=== PATIENT | male | born 1980 | race Caucasian/White ===

== ENCOUNTER 2017-02-27 08:24 | Emergency (ER) | payer BC, MEDICAID ==
[~2017-02-27] VITALS: Ht 182.9 cm; Wt 108.8 kg
[2017-02-27] MEDS ORDERED: FISH OIL PO (08:37)
[2017-02-27] MEDS ORDERED: METOCLOPRAMIDE HCL 10 MG/2 ML VIAL ONE (08:53)
[2017-02-27] MEDS ORDERED: KETOROLAC TROMETHAMINE 15 MG INJ ONE (08:53)
[2017-02-27] MEDS ORDERED: IV NORMAL SALINE 1000 ML BAG IV ONE (09:00)
[2017-02-27] MEDS ORDERED: METOCLOPRAMIDE HCL 10 MG/2 ML VIAL IV ONE (09:00)
[2017-02-27] MEDS ORDERED: KETOROLAC TROMETHAMINE 15 MG INJ IV ONE (09:00)
[2017-02-27 09:10] LABS: BASOPHILS # (AUTO) 0.1 K/uL (0.0-0.2); BASOPHILS % (AUTO) 0.6 % (0.0-2.0); EOSINOPHILS # (AUTO) 0.1 K/uL (0.0-0.7); EOSINOPHILS % (AUTO) 1.1 % (0.0-7.0); HEMATOCRIT 48.8 % (40.0-50.0); HEMOGLOBIN 16.8 g/dL (14.0-18.0); LYMPHOCYTES % (AUTO) 30.3 % (20.5-51.5); MEAN CORPUSCULAR HEMOGLOBIN 28.9 uug (27.0-31.0); MEAN CORPUSCULAR HGB CONC 34 g/dL (32.0-37.0); MONOCYTES # (AUTO) 0.6 K/uL (0.1-1.30); MONOCYTES % (AUTO) 6.1 % (0.0-11.0); NEUTROPHILS % (AUTO) 61.9 % (38.5-71.5); PLATELET COUNT (AUTO) 214 K/uL (150-450); RED BLOOD CELL COUNT(AUTO) 5.82 MIL/uL (4.70-6.10); WHITE BLOOD COUNT (AUTO) 9.8 K/uL (4.0-11.2)
[2017-02-27 09:17] LABS: CALCIUM 9.1 mg/dL (8.5-10.1); CREATININE 0.9 mg/dL (0.6-1.3); POTASSIUM 4.1 mmol/L (3.5-5.1)
[2017-02-27 09:23] LABS: ALBUMIN 4.1 g/dL (3.4-5.0); BILIRUBIN,DIRECT 0.1 mg/dL (0.0-0.2); BILIRUBIN,TOTAL 0.6 mg/dL (0.2-1.0); TOTAL PROTEIN, SERUM 8.1 g/dL (6.4-8.2)
[2017-02-27] MEDS ORDERED: MAG HYDROX/AL HYDROX/SIMETH 30 ML LIQUID UDC PO ONE (10:15)
[2017-02-27] MEDS ORDERED: FAMOTIDINE 20 MG TABLET PO ONE (10:15)
[2017-02-27 10:18] LABS: *BILIRUBIN,URIN NEGATIVE (NEGATIVE); *BLOOD, URINE 1+ (NEGATIVE); *CLARITY,URINE CLEAR (CLEAR); *COLOR,URINE LIGHT YELLOW (YELLOW); *KETONES,URINE NEGATIVE (NEGATIVE); *PROTEIN,URINE NEGATIVE (NEGATIVE); *UROBILINOGEN,URINE 0.2 E.U./dl (NORMAL); LEUKOCYTE ESTERASE ,URINE NEGATIVE (NEGATIVE); NITRITE, URINE NEGATIVE (NEGATIVE); UGLUCOSE NEGATIVE (NEGATIVE)
[2017-02-27 10:33] LABS: BACTERIA,URINE NONE SEEN /HPF (NONE SEEN); MUCUS,URINE FEW /LPF (0-FEW); SQUAMOUS EPITHELIAL CELL,UR FEW /HPF (NONE SEEN); WBC,URINE 0-3 /HPF (0-3)
[2017-02-27] MEDS ORDERED: IV NORMAL SALINE 250 ML IV ONE (10:33)
[2017-02-27] MEDS ORDERED: IOHEXOL 300MG/ML 100 ML INFUS..BTL ONE (10:33)
[2017-02-27] MEDS ORDERED: FAMOTIDINE 20 MG TABLET ONE (10:41)
[2017-02-27] MEDS ORDERED: MAG HYDROX/AL HYDROX/SIMETH 30 ML LIQUID UDC ONE (10:42)
--- NOTE | 2017-02-27 11:20 | NUR ---
Patient is resting comfortably in bed with eyes closed. PATIENT IS PAIN FREE AT THIS TIME.
--- NOTE | 2017-02-27 11:47 | NUR ---
Patient is tolerating po intake, pending disposition@this time
--- NOTE | 2017-02-27 12:00 | NUR ---
IV removed. Catheter intact and site benign. Pressure and 4x4 gauze applied to site. No bleeding noted.
--- NOTE | 2017-02-27 12:05 | NUR ---
Patient discharged to home in stable conditon. Written and verbal after care instructions given to patient. Patient verbalizes understanding of instructions. PATIENT IS STILL PAIN FREE AT THIS TIME.
== END 2017-02-27 12:07 | disposition home or self-care (01) ==
LOC: ER 08:24
DX: R07.89 Other chest pain (principal); R10.13 Epigastric pain; E78.00 Pure hypercholesterolemia, unspecified
CPT/HCPCS: 36415; 71010; 71275; 76705; 80048; 80076; 81001; 83690; 84484; 85025; 85379; 93005; 96374; 96375; 99291; A4663; J1885; J2765; J7030; J7050; Q9967; 70030-TC

== ENCOUNTER 2017-06-07 11:20 | Emergency (ER) | payer BC ==
[~2017-06-07] VITALS: Ht 185.4 cm; Wt 108.9 kg
[~2017-06-07 11:20] MED LIST: FISH OIL PO
[2017-06-07] MEDS ORDERED: NEOMY/BACITRA/POLYMYXIN B OINT UD PACKET TP ONE ×2 (12:00→12:16)
--- NOTE | 2017-06-07 12:06 | NUR ---
Patient discharged to home in stable conditon. Written and verbal after care instructions given to patient. Patient verbalizes understanding of instructions.
== END 2017-06-07 12:07 | disposition home or self-care (01) ==
LOC: ER 11:20
DX: L03.011 Cellulitis of right finger (principal); E78.00 Pure hypercholesterolemia, unspecified
CPT/HCPCS: 99283; A4217; A4663

== ENCOUNTER 2017-07-30 03:12 | Inpatient (IN) | payer BC ==
[~2017-07-30] VITALS: Ht 185.4 cm; Wt 108.9 kg
[2017-07-30] MEDS ORDERED: GEMFIBROZIL 600 MG TABLET PO (03:31)
[2017-07-30 03:56] LABS: BASOPHILS # (AUTO) 0.1 K/uL (0.0-8.0); BASOPHILS % (AUTO) 0.8 % (0.0-2.0); EOSINOPHILS # (AUTO) 0.3 K/uL (0.0-0.7); EOSINOPHILS % (AUTO) 3.8 % (0.0-7.0); HEMATOCRIT 47.4 % (40-50); HEMOGLOBIN 16.1 G/DL (14.0-18.0); LYMPHOCYTES # (AUTO) 4.6 K/UL (0.8-4.8); LYMPHOCYTES % (AUTO) 51.6 % (20.5-51.5); MEAN CORPUSCULAR HEMOGLOBIN 28.5 UUG (27.0-31.0); MEAN CORPUSCULAR HGB CONC 34 g/dL (32.0-37.0); MEAN CORPUSCULAR VOLUME 83.9 FL (82.0-92.0); MONOCYTES # (AUTO) 0.5 K/UL (0.1-1.30); MONOCYTES % (AUTO) 6.1 % (0.0-11.0); NEUTROPHILS # (AUTO) 3.4 K/UL (1.8-8.9); NEUTROPHILS % (AUTO) 37.7 % (38.5-71.5); PLATELET COUNT (AUTO) 242 K/UL (150-450); RED BLOOD CELL COUNT(AUTO) 5.65 MIL/UL (4.7-6.1); WHITE BLOOD COUNT (AUTO) 8.9 K/UL (4.0-11.2)
[2017-07-30 04:04] LABS: POTASSIUM 4.1 mmol/L (3.5-5.1)
[2017-07-30 04:06] LABS: *AMPHETAMINE, URINE NEGATIVE (NEGATIVE); *BARBITURATE, URINE NEGATIVE (NEGATIVE); *CANNABINOID, URINE NEGATIVE (NEGATIVE); *COCCAINE, URINE NEGATIVE (NEGATIVE); *OPIATE, URINE NEGATIVE (NEGATIVE); *PHENCYCLIDINE SCREEN,URINE NEGATIVE (NEGATIVE)
[2017-07-30 04:16] LABS: BILIRUBIN,DIRECT 0.1 mg/dL (0.0-0.2); BILIRUBIN,TOTAL 0.5 mg/dL (0.2-1.0)
[2017-07-30 08:17] VITALS: BP 126/76
[2017-07-30 11:24] VITALS: BP 132/70
[2017-07-30 15:32] VITALS: BP_SYST 112; BP_SYST 131; BP_DIAS 64; BP_DIAS 79
[2017-07-30 16:43] LABS: *BILIRUBIN,URIN NEGATIVE (NEGATIVE); *BLOOD, URINE Trace-intact (NEGATIVE); *COLOR,URINE YELLOW (YELLOW); *KETONES,URINE NEGATIVE (NEGATIVE); *PROTEIN,URINE NEGATIVE (NEGATIVE); *UROBILINOGEN,URINE 0.2 E.U./dl (NORMAL); LEUKOCYTE ESTERASE ,URINE NEGATIVE (NEGATIVE); NITRITE, URINE NEGATIVE (NEGATIVE); UGLUCOSE NEGATIVE (NEGATIVE)
[2017-07-30 17:00] LABS: *CLARITY,URINE SLIGHTLY HAZY (CLEAR)
[2017-07-30 17:02] LABS: SQUAMOUS EPITHELIAL CELL,UR FEW /HPF (NONE SEEN); URINE AMORPHOUS PHOSPHATES MODERATE /HPF; WBC,URINE 0-3 /HPF (0-3)
[2017-07-30 17:03] LABS: MUCUS,URINE FEW /LPF (0-FEW)
[2017-07-30 20:14] VITALS: BP 133/96
[2017-07-31 06:39] LABS: BASOPHILS # (AUTO) 0.1 K/uL (0.0-8.0); BASOPHILS % (AUTO) 0.6 % (0.0-2.0); EOSINOPHILS # (AUTO) 0.5 K/uL (0.0-0.7); HEMATOCRIT 49.7 % (40-50); HEMOGLOBIN 17.3 G/DL (14.0-18.0); LYMPHOCYTES # (AUTO) 4.9 K/UL (0.8-4.8); MEAN CORPUSCULAR HEMOGLOBIN 29.3 UUG (27.0-31.0); MEAN CORPUSCULAR HGB CONC 35 g/dL (32.0-37.0); MEAN CORPUSCULAR VOLUME 84.1 FL (82.0-92.0); MONOCYTES # (AUTO) 0.7 K/UL (0.1-1.30); MONOCYTES % (AUTO) 7.1 % (0.0-11.0); NEUTROPHILS % (AUTO) 32.3 % (38.5-71.5); PLATELET COUNT (AUTO) 259 K/UL (150-450); RED BLOOD CELL COUNT(AUTO) 5.91 MIL/UL (4.7-6.1); WHITE BLOOD COUNT (AUTO) 9.2 K/UL (4.0-11.2)
[2017-07-31 06:51] VITALS: BP 131/92
[2017-07-31 07:31] LABS: CREATININE 1.1 mg/dL (0.6-1.3); MAGNESIUM 1.8 mg/dL (1.8-2.4); PHOSPHOROUS 4.5 mg/dL (2.5-4.9); POTASSIUM 4.1 mmol/L (3.5-5.1)
[2017-07-31 11:40] VITALS: BP 131/87
[2017-07-31] MEDS ORDERED: OMEG1CAP PO (15:48)
== END 2017-07-31 16:30 | disposition home or self-care (01) | DRG 756 ==
LOC: ER 03:12 → MED 06:30 → TELE 06:30 → UNDOADMIN 06:30 → MED 10:30
PROVIDERS: ADMIT Internal Medicine; ATTEND Internal Medicine
DX: F41.9 Anxiety disorder, unspecified (principal); K76.0 Fatty (change of) liver, not elsewhere classified; E78.5 Hyperlipidemia, unspecified; E66.9 Obesity, unspecified; R74.0 Nonspecific elevation of levels of transaminase and lactic acid dehydrogenase [LDH]; F43.9 Reaction to severe stress, unspecified; E11.9 Type 2 diabetes mellitus without complications; Z68.31 Body mass index [BMI] 31.0-31.9, adult; Z82.49 Family history of ischemic heart disease and other diseases of the circulatory system; E78.1 Pure hyperglyceridemia
CPT/HCPCS: 36415; 70030-TC; 71010; 78452; 80307; 83735; 84100; 84443; 85025; 85730; 87086; 93005; 93307; A4663; A9502; J1815; J2785; J7030

== ENCOUNTER 2018-02-27 01:23 | Emergency (ER) | payer BC, MEDICAID ==
[~2018-02-27] VITALS: Ht 182.9 cm; Wt 99.8 kg
[~2018-02-27 01:23] MED LIST changes: -FISH OIL PO; +GEMFIBROZIL 600 MG TABLET PO; +OMEG1CAP PO
--- NOTE | 2018-02-27 01:41 | NUR ---
DR MADDIE EUGENE MD AT BEDSIDE FOR MSE.
--- NOTE | 2018-02-27 02:00 | NUR ---
XRAY AT PT BEDSIDE.
[2018-02-27] MEDS ORDERED: LORAZEPAM 0.5 MG TABLET PO ONE (02:15)
[2018-02-27 02:20] LABS: CREATININE 1.1 mg/dL (0.6-1.3); POTASSIUM 3.8 mmol/L (3.5-5.1)
[2018-02-27] MEDS ORDERED: LORAZEPAM 0.5 MG TABLET ONE (02:20)
[2018-02-27 02:22] LABS: BASOPHILS % (AUTO) 0.5 % (0.0-2.0); EOSINOPHILS # (AUTO) 0.2 K/uL (0.0-0.7); EOSINOPHILS % (AUTO) 2.4 % (0.0-7.0); HEMOGLOBIN 15.7 g/dL (12.5-16.3); LYMPHOCYTES # (AUTO) 4.5 K/uL (20.0-40.0); LYMPHOCYTES % (AUTO) 48.1 % (20.5-51.5); MEAN CORPUSCULAR HEMOGLOBIN 28.9 uug (23.8-33.4); MEAN CORPUSCULAR HGB CONC 35 g/dL (32.5-36.3); MEAN CORPUSCULAR VOLUME 83.1 fL (73.0-96.2); MONOCYTES # (AUTO) 0.6 K/uL (2.0-10.0); MONOCYTES % (AUTO) 5.9 % (0.0-11.0); NEUTROPHILS % (AUTO) 43.1 % (38.5-71.5); PLATELET COUNT (AUTO) 230 K/uL (152-348); RED BLOOD CELL COUNT(AUTO) 5.41 MIL/uL (4.06-5.63); WHITE BLOOD COUNT (AUTO) 9.3 K/uL (3.6-10.2)
[2018-02-27 02:26] LABS: BILIRUBIN,DIRECT 0.1 mg/dL (0.0-0.2); BILIRUBIN,TOTAL 0.3 mg/dL (0.2-1.0); TOTAL PROTEIN, SERUM 7.6 g/dL (6.4-8.2)
--- NOTE | 2018-02-27 03:17 | NUR ---
PT RESTING IN BED W/ EYES CLOSED. NO ACUTE DISTRESS NOTED.
--- NOTE | 2018-02-27 04:02 | NUR ---
PT AMBULATED TO AND FROM BATHROOM W/ STEADY GAIT. DENIES SOB OR CP AT THIS TIME.
--- NOTE | 2018-02-27 05:47 | NUR ---
IV REMOVED W/ CATHETR INTACT. PRESSURE APPLIED. NO BLEEDING NOTED AT SITE.
--- NOTE | 2018-02-27 05:50 | NUR ---
Patient discharged to home in stable conditon. Written and verbal after care instructions given. Patient verbalizes understanding of instructions. Pt ambulated from the ER w/ steady gait. Denies CP or SOB. No distress noted.
[2018-02-27 05:52] VITALS: BP 136/86
== END 2018-02-27 05:53 | disposition home or self-care (01) ==
LOC: ER 01:30
DX: R07.89 Other chest pain (principal); E78.00 Pure hypercholesterolemia, unspecified; Z79.899 Other long term (current) drug therapy
CPT/HCPCS: 36415; 70030-TC; 71045; 83690; 85025; 85730; 93005; A4663

== ENCOUNTER 2018-08-27 19:48 | Emergency (ER) | payer MEDICAID ==
[~2018-08-27] VITALS: Ht 185.4 cm; Wt 111.1 kg
[2018-08-27] MEDS ORDERED: ONDANSETRON 4 MG/2 ML VIAL ONE (20:08)
[2018-08-27] MEDS ORDERED: predniSONE 20 MG TABLET PO ONE (20:15)
[2018-08-27] MEDS ORDERED: ONDANSETRON 4 MG/2 ML VIAL IM ONE (20:15)
[2018-08-27] MEDS ORDERED: HYDROMORPHONE 1 MG/1 ML DISP.SYRIN IM ONE (20:15)
[2018-08-27] MEDS ORDERED: IBUPROFEN 800 MG TABLET PO ONE (20:15)
[2018-08-27] MEDS ORDERED: IBUPROFEN 800 MG TABLET ONE (20:25)
[2018-08-27] MEDS ORDERED: HYDROMORPHONE 1 MG/1 ML DISP.SYRIN ONE (20:25)
[2018-08-27] MEDS ORDERED: predniSONE 10 MG TABLET ONE (20:25)
[2018-08-27] MEDS ORDERED: predniSONE 50 MG TABLET ONE (20:25)
--- NOTE | 2018-08-27 20:36 | NUR ---
Patient discharged to home in stable conditon. Written and verbal after care instructions given. Patient verbalizes understanding of instructions.
== END 2018-08-27 20:37 | disposition home or self-care (01) ==
LOC: ER 19:49
DX: M54.41 Lumbago with sciatica, right side (principal); E78.00 Pure hypercholesterolemia, unspecified
CPT/HCPCS: 96372 ×2; 99284; A4663; J1170; J2405; J7512 ×2

== ENCOUNTER 2018-10-09 20:23 | Inpatient (IN) | payer MEDICAID ==
[~2018-10-09] VITALS: Ht 185.4 cm; Wt 108.9 kg
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
--- NOTE | 2018-10-09 20:50 | NUR ---
US TECH AT BEDSIDE.
[2018-10-09] MEDS ORDERED: PIPERACILLIN SODIUM/TAZOBACTAM 3.375 G in IV DEXTROSE 5% 50 ML IV ONE (21:00)
[2018-10-09] MEDS ORDERED: IV NORMAL SALINE 1000 ML BAG IV ONE (21:00)
[2018-10-09] MEDS ORDERED: VANCOMYCIN IV 1,000 MG in IV DEXTROSE 5% 250 ML IV ONE (21:00)
[2018-10-09] MEDS ORDERED: VANCOMYCIN IV 200 ML ONE (21:09)
[2018-10-09] MEDS ORDERED: PIPERACILLIN/TAZOBACTAM/D5W 50 ML IV ONE (21:09)
[2018-10-09 21:11] LABS: BASOPHILS % (AUTO) 0.4 % (0.0-2.0); EOSINOPHILS # (AUTO) 0.3 K/uL (0.0-0.7); EOSINOPHILS % (AUTO) 3.1 % (0.0-7.0); HEMATOCRIT 45.6 % (36.7-47.1); LYMPHOCYTES # (AUTO) 4.6 K/uL (20.0-40.0); MEAN CORPUSCULAR HEMOGLOBIN 29.5 uug (23.8-33.4); MEAN CORPUSCULAR HGB CONC 35 g/dL (32.5-36.3); MEAN CORPUSCULAR VOLUME 84.3 fL (73.0-96.2); MONOCYTES # (AUTO) 0.8 K/uL (2.0-10.0); MONOCYTES % (AUTO) 7.1 % (0.0-11.0); NEUTROPHILS # (AUTO) 5.2 K/uL (1.8-8.9); NEUTROPHILS % (AUTO) 47.4 % (38.5-71.5); PLATELET COUNT (AUTO) 236 K/uL (152-348); RED BLOOD CELL COUNT(AUTO) 5.41 MIL/uL (4.06-5.63); WHITE BLOOD COUNT (AUTO) 10.9 K/uL (3.6-10.2)
[2018-10-09] MEDS ORDERED: ATOR40TA PO (21:11)
[2018-10-09] MEDS ORDERED: LOSA100T15 PO (21:11)
[2018-10-09] MEDS ORDERED: METF-440 PO (21:11)
[2018-10-09] MEDS ORDERED: CEPH250C PO (21:11)
[2018-10-09 21:21] LABS: POTASSIUM 3.9 mmol/L (3.5-5.1)
[2018-10-09 21:27] LABS: BILIRUBIN,DIRECT 0.2 mg/dL (0.0-0.2); BILIRUBIN,TOTAL 0.5 mg/dL (0.2-1.0); TOTAL PROTEIN, SERUM 7.7 g/dL (6.4-8.2)
[2018-10-09 21:47] LABS: *BILIRUBIN,URIN NEGATIVE (NEGATIVE); *BLOOD, URINE Trace-intact (NEGATIVE); *CLARITY,URINE CLEAR (CLEAR); *COLOR,URINE YELLOW (YELLOW); *KETONES,URINE TRACE (NEGATIVE); *PROTEIN,URINE NEGATIVE (NEGATIVE); LEUKOCYTE ESTERASE ,URINE NEGATIVE (NEGATIVE); NITRITE, URINE NEGATIVE (NEGATIVE); UGLUCOSE NEGATIVE (NEGATIVE)
[2018-10-09 21:55] LABS: MUCUS,URINE FEW /LPF (0-FEW); WBC,URINE 0-3 /HPF (0-3)
--- NOTE | 2018-10-09 22:26 | NUR ---
SPOKE W/ ELIDA FROM [facility] RE PT'S AD[facility]ION [facility]. AUTHORIZATION #[id number].
--- NOTE | 2018-10-09 22:28 | NUR ---
JABIER ABRAHAM ON PHONE W/ DR. HUBER RE PT'S ADMISSION.
[2018-10-09] MEDS ORDERED: ONDANSETRON 4 MG/2 ML VIAL IV ONE (22:45)
[2018-10-09] MEDS ORDERED: MORPHINE SULFATE 4 MG/1 ML DISP.SYRIN IV ONE (22:45)
--- NOTE | 2018-10-09 22:46 | NUR ---
GAVE ADMITTING REPORT TO PORTILLO CESPEDES.
[2018-10-09] MEDS ORDERED: MORPHINE SULFATE 4 MG/1 ML DISP.SYRIN ONE (22:49)
[2018-10-09] MEDS ORDERED: ONDANSETRON 4 MG/2 ML VIAL ONE (22:49)
[2018-10-09 23:00] VITALS: BP 121/74
--- NOTE | 2018-10-09 23:13 | NUR ---
Pt. admitted to 230, under care of Dr. HUBER. Belongs List completed.
--- NOTE | 2018-10-09 23:13 | NUR ---
ENDORSED TO PORTILLO CESPEDES (M/S RN) TO FINISH INFUSION OF N/S UPON ARRIVAL.
[2018-10-10] MEDS ORDERED: CEFTRIAXONE 1 G in IV DEXTROSE 5% 50 ML IV SCH (00:30)
[2018-10-10] MEDS ORDERED: ACETAMINOPHEN 325 MG TABLET PO PRN (00:30)
[2018-10-10] MEDS ORDERED: ONDANSETRON 4 MG/2 ML VIAL IV PRN (00:30)
[2018-10-10] MEDS ORDERED: Z GUARD REMEDY PASTE 57 GM TUBE TOP PRN (00:30)
[2018-10-10] MEDS ORDERED: HYDROCODONE/APAP 5-325MG TABLET PO PRN (00:30)
[2018-10-10] MEDS ORDERED: MAGNESIUM HYDROXIDE 30 ML LIQUID UDC PO PRN (00:30)
[2018-10-10] MEDS ORDERED: CEFTRIAXONE 1 G VIAL ONE (00:40)
[2018-10-10 03:51] VITALS: BP 110/54
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
[2018-10-10] MEDS: VANCOMYCIN IV 2,000 MG in IV DEXTROSE 5% 500 ML IV SCH ×2 (08:54→20:07)
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
[2018-10-10] MEDS ORDERED: DEXTROSE 50% 50 ML DISP.SYRIN IV PRN (11:30)
[2018-10-10 11:31] VITALS: BP 133/74
[2018-10-10] MEDS: BLOOD SUGAR DIAGNOSTIC 1 EACH STRIP VI SCH ×3 (11:56→20:13)
[2018-10-10] MEDS: INSULIN REGULAR, HUMAN 300 UNIT/3 ML VIAL SQ PRN ×2 (11:58→20:23)
--- NOTE | 2018-10-10 12:00 | NUR ---
RESTING WELL VANCOMYCIN COMPLETE NO REACTION AT THIS TIME
--- NOTE | 2018-10-10 12:06 | NUR ---
Clinical Pharmacy Note: Vancomycin Pharmacy to Dose Subjective: To start vancomycin in this 37 y/o male for cellulitis Patient received vanco 1gm IVPB x1 in ED on 10/09 at 2200 Objective: weight 108.8 kg height 185.4 cm BUN 16 (10/09) Scr 1.0 (10/09) Wbc 10.9 (10/09) temp 98 Assessment/Plan Will start vanco 2 gm IVPB q11 h for predicted vanco trough level of 15.4 mcg/ml at steady state. 1st dose today at 0900. Plan to check vanco trough level before 4th dose (not yet ordered). Will monitor renal function & adjust the dose if needed. will follow.
[2018-10-10] MEDS ORDERED: diphenhydrAMINE 50 MG/1 ML VIAL IV PRN (12:15)
[2018-10-10] MEDS ORDERED: diphenhydrAMINE 50 MG CAPSULE PO PRN (13:00)
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
[2018-10-10 15:15] VITALS: BP 133/74
[2018-10-10] MEDS ORDERED: SILVER SULFADIAZINE 1% CREAM 25 GM TUBE TP ONE (16:09)
--- NOTE | 2018-10-10 17:30 | NUR ---
SILVERDINE CREAM APPLY TO BURN SITE ORDER
--- NOTE | 2018-10-10 18:00 | NUR ---
STABLE CONDITION PAIN UNDER CONTROL SAFETY MEASURE PROVIDED CALL LIGHT IN REACH
--- NOTE | 2018-10-10 19:10 | NUR ---
received pt awake on bed, aaox4, denies any discomfort at this time. IV site on LAC, patent and intact. safety measures initiated, placed bed on low and locked position wtih two side rails up. Pt belongings and call corrigan within reach.
[2018-10-10 19:41] VITALS: BP 122/75
[2018-10-10 20:08] VITALS: BP 122/75
--- NOTE | 2018-10-10 20:45 | NUR ---
seen and examined by [facility] TELEVISION WRITER
[2018-10-10] MEDS ORDERED: LOSARTAN POTASSIUM 50 MG TABLET PO SCH (21:00)
[2018-10-10] MEDS ORDERED: INSULIN GLARGINE,HUM 300 UNITS/3 ML CARTRIDGE SQ SCH (21:00)
[2018-10-10] MEDS ORDERED: LACTOBACILLUS RHAMNOSUS GG 1 EACH CAPSULE PO SCH (21:00)
[2018-10-10] MEDS ORDERED: Medication Not On Formulary EA (Losartan Potassium 100 MG) PO SCH (21:00)
[2018-10-10] MEDS ORDERED: OMEGA-3 FATTY ACIDS/FISH OIL CAPSULE PO SCH (21:00)
[2018-10-10] MEDS ORDERED: ATORVASTATIN 40 MG TABLET PO SCH (21:00)
--- NOTE | 2018-10-11 00:30 | NUR ---
PT DISCHARGED IN STABLE CONDITION TO HOME. AAOX4, NO SIGNS OF ACUTE DISTRESS AT THIS TIME. ALL DUE MEDS GIVEN. PT TOLERATED ORDERED IV VANCO, NO S/S OF ALLERGIC REACTION NOTED. DISCHARGE PROTOCOL FOLLOWED. INSTRUCTED PT TO FOLLOW UP WITH PCP IN 1 WEEK AND TO FOLLOW NEW PRESCRIPTION ORDERED, PT VERBALIZED UNDERSTANDING. IV SITE AND NAME BAND REMOVED. BELONGINGS LIST COMPLETED. PT LEFT HOSPITAL IN APPARENT FAIR CONDITION.
== END 2018-10-11 00:37 | disposition home or self-care (01) | DRG 501 ==
LOC: ER 20:24 → MED 23:05
PROVIDERS: ADMIT Internal Medicine; ATTEND Hospitalist
DX: N49.2 Inflammatory disorders of scrotum (principal); E11.65 Type 2 diabetes mellitus with hyperglycemia; K76.0 Fatty (change of) liver, not elsewhere classified; L03.115 Cellulitis of right lower limb; T24.211D Burn of second degree of right thigh, subsequent encounter; T79.8XXD Other early complications of trauma, subsequent encounter; X10.0XXD Contact with hot drinks, subsequent encounter; E78.5 Hyperlipidemia, unspecified; N50.89 Other specified disorders of the male genital organs; F17.290 Nicotine dependence, other tobacco product, uncomplicated; I10 Essential (primary) hypertension; E66.9 Obesity, unspecified; Z68.31 Body mass index [BMI] 31.0-31.9, adult; Z79.84 Long term (current) use of oral hypoglycemic drugs; Z82.49 Family history of ischemic heart disease and other diseases of the circulatory system; Z71.3 Dietary counseling and surveillance; Z79.899 Other long term (current) drug therapy
CPT/HCPCS: 36415; 76870; 85025; A4663; G0378; J0696; J1815; J2270; J2405; J2543; J3370; J7030; J7060; Q0163

== ENCOUNTER 2018-12-08 11:59 | Emergency (ER) | payer MEDICAID ==
[~2018-12-08] VITALS: Ht 185.4 cm; Wt 111.1 kg
[~2018-12-08 11:59] MED LIST changes: +ATOR40TA PO; +CEPH250C PO; -GEMFIBROZIL 600 MG TABLET PO; +LOSA100T31 PO; +METF-440 PO
--- NOTE | 2018-12-08 12:41 | NUR ---
Patient discharged to home in stable conditon. Written and verbal after care instructions given. Patient verbalizes understanding of instructions. PT D/C W/ PRESCRIPTION. ALL BELONGINGS W/ PT. PT SELF-AMBULATED W/O DIFFICULTY.
[2018-12-08 12:42] VITALS: BP 148/79
== END 2018-12-08 12:43 | disposition home or self-care (01) ==
LOC: ER 11:59
DX: K64.5 Perianal venous thrombosis (principal); E78.00 Pure hypercholesterolemia, unspecified; E11.9 Type 2 diabetes mellitus without complications; Z88.2 Allergy status to sulfonamides; Z79.1 Long term (current) use of non-steroidal anti-inflammatories (NSAID); Z79.899 Other long term (current) drug therapy
CPT/HCPCS: A4663

== ENCOUNTER 2019-02-04 20:25 | Emergency (ER) | payer MEDICAID ==
[~2019-02-04] VITALS: Ht 185.4 cm; Wt 110.7 kg
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
== END 2019-02-04 22:24 | disposition left against medical advice (07) ==
LOC: ER 20:25
DX: Z53.21 Procedure and treatment not carried out due to patient leaving prior to being seen by health care provider (principal)
CPT/HCPCS: A4663